=== PATIENT | female | born 2000 | race Caucasian/White ===

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

== ENCOUNTER 2018-04-28 15:48 | Emergency (ER) | payer OTHER ==
[~2018-04-28] VITALS: Ht 160 cm; Wt 52.9 kg
[~2018-04-28 15:48] MED LIST: ACET1TAB40 PO; ACET325T33 PO; AMOX500C2 PO; CIPR-193 PO; GENT5DRO28 LEFT EYE; IBUP-1561 PO; IBUP-1706 PO; IBUP800T48 PO; METO10TA92 PO
[2018-04-28 16:06] VITALS: Ht 160 cm; Wt 52.9 kg
[2018-04-28] MEDS ORDERED: AMOX500C2 PO ×2 (20:46)
[2018-04-28] MEDS ORDERED: IBUP-1561 PO (20:46)
--- NOTE | 2018-04-28 20:50 | ERD ---
ER Documentation Chief Complaint Chief Complaint st x 1 week HPI Patient is a 17-year-old female who presents ER for concerns of sore throat times 1 week. Patient states she has pain with swallowing. Patient denies any joint dimensions are present on her neck. Patient denies fevers. Patient does have a mild dry cough. Patient denies any neck pain or neck stiffness. Patient denies any nausea, vomiting, bowel pain or diarrhea. Patient states she does have sick contacts with siblings at home. Patient is up-to-date with vaccinations. No recent travel. ROS All systems reviewed and are negative except as per history of present illness. Medications Home Meds Active Scripts Ibuprofen* (Motrin*) 400 Mg Tab, 400 MG PO Q6, #30 TAB Prov:ZENAIDA DURAND PA-C 04/28/18 Amoxicillin* (Amoxicillin*) 500 Mg Cap, 500 MG PO BID for 7 Days, CAP Prov:ZENAIDA DURAND PA-C 04/28/18 Metoclopramide* (Reglan*) 10 Mg Tablet, 10 MG PO Q6 PRN for NAUSEA AND/OR VOMITING, #10 TAB Prov:BELLA THOMAS MD 11/24/17 Acetaminophen* (Tylenol*) 325 Mg Tablet, 2 TAB PO Q8 PRN for PAIN AND OR ELEVATED TEMP, #20 TAB Prov:BELLA THOMAS MD 11/24/17 Ciprofloxacin Hcl* (Ciprofloxacin Hcl*) 250 Mg Tablet, 250 MG PO BID for 3 Days, #6 TAB Prov:BELLA THOMAS MD 11/24/17 Acetaminophen with Codeine (Acetaminophen-Cod #3 Tablet) 1 Each Tablet, 1 TAB PO Q6H PRN for PAIN, #10 TAB Prov:ISAK LEE PA-C 11/08/17 Ibuprofen* (Motrin*) 800 Mg Tab, 800 MG PO Q6, #30 TAB Prov:ISAK LEE PA-C 11/08/17 Ibuprofen* (Motrin*) 400 Mg Tab, 400 MG PO Q6H PRN for PAIN AND OR ELEVATED TEMP, #30 TAB Prov:VANI CAPONE DO 05/07/15 Amoxicillin* (Amoxicillin*) 500 Mg Cap, 500 MG PO TID for 7 Days, CAP Prov:VANI CAPONE DO 05/07/15 Ibuprofen* (Motrin*) 400 Mg Tab, 400 MG PO Q6, #18 TAB Prov:FANNIE MAYNARD MD 02/20/15 Gentamicin Sulfate* (Gentamicin Sulfate* Ophth) 0.3% - 5 Ml Drops, 1 DROP LEFT EYE QID for 7 Days, EA Prov:FANNIE MAYNARD MD 12/06/14 Reported Medications Ibuprofen* Susp (Motrin* Susp) 20 Mg/Ml Susp, 50 MG PO Q6H PRN for PAIN, ML 10/29/13 Discontinued Scripts Amoxicillin* (Amoxicillin*) 500 Mg Cap, 500 MG PO TID for 7 Days, CAP Prov:ZENAIDA DURAND PA-C 04/28/18 Allergies Allergies: Uncoded Allergies: EXCEDRIN (Allergy, Unknown, 11/08/17) PMhx/Soc History of Surgery: No Anesthesia Reaction: No Hx Neurological Disorder: No Hx Respiratory Disorders: No Hx Cardiac Disorders: No Hx Psychiatric Problems: No Hx Miscellaneous Medical Probl: No Hx Alcohol Use: No Hx Substance Use: No Hx Tobacco Use: No FmHx Family History: No diabetes Physical Exam Vitals Vital Signs Date Temp Pulse Resp B/P (MAP) Pulse Ox O2 O2 Flow FiO2 Time Delivery Rate 04/28/18 98.2 80 20 112/67 99 16:06 (82) Physical Exam GENERAL: Well-developed, well-nourished female. Appears in no acute distress. HEAD: Normocephalic, atraumatic. EYES: Pupils are equally reactive bilaterally. EOMs grossly intact. No conjunctival erythema. ENT: Bilateral TMs are nonerythematous, nonbulging. Oropharynx is erythematous. Few exudates noted on the left tonsil. Uvula is midline. No drooling. No trismus. No unilateral tonsillar swelling. Moist mucous membranes. No uvula deviation. No kissing tonsils. NECK: Supple. No meningismus. Normal range of motion of the neck. Left-sided cervical lymphadenopathy noted. Slightly tender. Soft, movable. LUNG: Clear to auscultation bilaterally. No rhonchi, wheezing, rales or coarse breath sounds. HEART: Regular rate and rhythm. No murmurs, rubs or gallops. EXTREMITIES: Equal pulses bilaterally. No peripheral clubbing, cyanosis or edema. No unilateral leg swelling. NEUROLOGIC: Alert and oriented. Moving all four extremities without any difficulty. Normal speech. Steady gait. SKIN: Normal color. Warm and dry. No rashes or lesions. Procedures/MDM MEDICAL DECISION MAKING: This is a night here from presents the ER for concerns of throat pain times 1 week. Vital signs were reviewed. Patient was afebrile. Patient was not hypoxic. Given that patient has had symptoms for a week, patient likely has tonsillitis. Trial of antibiotics will be given. Low suspicion for pneumonia, meningitis, sinusitis, otitis externa, acute otitis media, retropharyngeal abscess, epiglottitis or peritonsillar abscess. Patient was nontoxic, [id number] prior to discharge. PRESCRIPTIONS: Ibuprofen, amoxicillin DISCHARGE: At this time, patient is stable for discharge and outpatient management. Supportive therapies such as OTC throat lozenges, salt water gurgles, popsicles and jello discussed. I have instructed the patient to follow-up with his/her primary care physician in 1-2 days. I have instructed the patient to promptly return to the ER for any new or worsening symptoms including increased pain, swelling, fever, nausea, vomiting, weakness or difficulty breathing. The patient and/or family expressed understanding of and agreement with this plan. All questions were answered. Home care instructions were provided. Disclaimer: Inadvertent spelling and grammatical errors are likely due to EHR/dictation software use and do not reflect on the overall quality of patient care. Also, please note that the electronic time recorded on this note does not necessarily reflect the actual time of the patient encounter. Departure Diagnosis: Primary Impression: Tonsillitis Condition: Fair Patient Instructions: Otitis Media, Abx Tx (Adult) Referrals: [facility] (PCP) Additional Instructions: Call your primary care doctor TOMORROW for an appointment during the next 1-2 days.See the doctor sooner or return here if your condition worsens before your appointment time. ZENAIDA DURAND PA-C Apr 28, 2018 20:50
[2018-04-28 20:52] VITALS: BP 115/75; PULSE 84; RESP 18
== END 2018-04-28 20:55 | disposition home or self-care (01) ==
LOC: FTE 15:48
DX: J03.90 Acute tonsillitis, unspecified (principal)
CPT/HCPCS: 99283